=== PATIENT | female | born 1955 | race Caucasian/White ===

== ENCOUNTER → 2018-03-05 11:15 | Outpatient (CLI) | payer OTHER, SELFPAY | PROVIDERS: Family Provider Family Medicine; PCP Family Medicine; Referring Provider Family Medicine; Visit Provider Family Medicine | DX: Z00.00 Encounter for general adult medical examination without abnormal findings (principal) | CPT/HCPCS: 36415 ==

== ENCOUNTER → 2024-12-23 | Outpatient (CLI) | payer MEDICARE, SELFPAY ==
[2024-12-29 09:08] LABS: HPV APTIMA, High Risk Negative (Negative)
== END | disposition home or self-care (01) ==
PROVIDERS: PCP Family Medicine; Visit Provider Obstetrics & Gynecology
DX: Z12.4 Encounter for screening for malignant neoplasm of cervix (principal)
CPT/HCPCS: 87624; 88175; G0145

== ENCOUNTER → 2025-01-19 | Outpatient (CLI) | payer MEDICARE, SELFPAY ==
--- NOTE | 2025-01-19 12:29 | US_ITS ---
PROCEDURE: PELVIC W/ TRANSVAGINAL REASON FOR EXAM: POSTMENOPAUSAL BLEEDING TECHNIQUE: Procedure Code: [id number] Modality: US Procedure: PELVIC W/ TRANSVAGINAL COMPARISON: None FINDINGS: Measurements: Uterus: 6.7 cm x 4.2 cm x 3.1 cm with a volume of 45.4 mL Endometrial Thickness: 2 mm Right Ovary: 4 cm x 4.2 cm x with a volume of 25.3 mL. Left Ovary: Not visualized. TRANSABDOMINAL: Uterus: Heterogeneous echotexture of the uterus with focal calcification suggestive of fibroid change. Endometrium: Unremarkable Right ovary: Small right ovarian cysts are seen. The largest measures 2.4 cm 2.6 cm 2.1 cm. Left ovary: Not visualized. Other: No large pelvic mass identified. Transvaginal sonography was performed to better visualize the endometrium. TRANSVAGINAL: Uterus: Anteverted. Fibroid change. Endometrium: Normal echotexture. Right ovary: Small cysts. The largest cyst measures 2.4 cm 2.6 cm x 2.1 cm. Left ovary: Not visualized. Other adnexal findings: None. Cul-de-sac: No free intraperitoneal fluid identified. Tenderness: No tenderness US/Pelvic w/ Transvaginal IMPRESSION: Fibroid change in the uterus. Right ovarian cysts. The largest measures 2.4 cm 2.6 cm 2.1 cm. Reading Location: [id number]
== END | disposition home or self-care (01) ==
PROVIDERS: PCP Internal Medicine; Referring Provider Obstetrics & Gynecology; Visit Provider Obstetrics & Gynecology
DX: N93.9 Abnormal uterine and vaginal bleeding, unspecified (principal)
CPT/HCPCS: 76830; 76856

== ENCOUNTER 2025-01-29 08:25 | Day surgery (SDC) | payer MEDICARE, SELFPAY ==
[2025-01-22 14:09] LABS: Hematocrit 44.0 % (37-47); Hemoglobin 15.2 g/dL (12.0-15.0); Mean Corp Hgb Conc 34.5 g/dL (32-36); Mean Corpuscular Volume 87.6 fL (81-99); Mean Platelet Vol. 10.2 fl (6.2-12.0); Platelet Count 263 K/mm3 (150-450); RBC Distribution Width CV 13.2 % (11.6-14.6); RBC Distribution Width SD 42.5 fl (35.1-43.9); Red Blood Count 5.02 M/mm3 (4.2-5.4); White Blood Count 5.3 K/mm3 (4.4-11.0)
[2025-01-22 14:37] LABS: AST(SGOT) 25 U/L (<=31); Alanine Aminotransfer ALT/SGPT 14 U/L (<=34); Albumin, Serum 4.6 g/dL (3.4-4.8); Alkaline Phosphatase 71 U/L (35-104); Anion Gap 11 (5-15); BUN 13 mg/dL (4-19); BUN/Creat Ratio 18.6 RATIO (10-20); Calcium,Total 9.5 mg/dL (7.6-11.0); Carbon Dioxide 25.2 mmol/L (21.0-32.0); Chloride 102 mmol/L (98-108); Globulin 2.8 g/dL (2.2-4.2); Glucose 102 mg/dL (70-99); Potassium 4.2 mmol/L (3.3-5.1)
[2025-01-24 06:37] LABS: Carcinoembryonic Antigen 1.0 ng/mL (0.0-4.7)
[2025-01-29] VITALS (8 sets, daily range): BP systolic 88–154; BP diastolic 45–95; PULSE 53–78; RESP 16–18; TEMP 36.1–36.6; O2SAT 95–100; BMI 22.1
--- NOTE | 2025-01-29 08:17 | PCM.HP.BLA ---
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 Postmenopausal Bleeding - Reports postmenopausal bleeding episodes occurring daily, primarily noticed when wiping, with no clots observed. - Recent ultrasound on December 10 revealed calcifications in the uterine lining and a cluster of cysts in the right ovary. - No associated pelvic pain, but occasional pressure is noted, particularly when the prolapse is more pronounced. - No significant changes in weight, appetite, or energy levels. - No fevers, chest pain, shortness of breath, cough, or wheezing reported. - No abdominal pain, bloating, diarrhea, nausea, or vomiting. - No new skin lesions, dryness, or heat/cold intolerance. Pelvic Organ Prolapse - Initially sought medical attention for prolapse before the onset of bleeding. - Prolapse symptoms include a feeling of fullness and pressure, especially when the prolapse is more pronounced. - Symptoms are exacerbated by bowel movements and constipation. - Referred to a pelvic therapy program but has not yet initiated treatment. - No rectal bleeding reported. - Experiences urinary leakage, necessitating the use of a pad daily. Basal Cell Carcinoma - Recently diagnosed with basal cell carcinoma located above the tailbone. - Lesion was excised with clear margins achieved on re-excision. Hypertension - History of hypertension, currently not on medication. - Previously treated with hydrochlorothiazide (HCTZ) many years ago. - Monitored blood pressure at home last year due to elevated readings during a wellness visit. - Reports elevated blood pressure readings in clinical settings, attributing it to white coat syndrome. Family History - Mother and maternal grandmother had breast cancer; mother was diagnosed at 42 years old and 10 years later due to recurrence. - No family history of ovarian, colon, stomach, or renal cancer. - No genetic testing for breast cancer has been conducted in the family. Past Surgical History - Tonsillectomy. - Tubal ligation. History 5 Elective abortions Hx Para 5 Spontaneous abortions Hx # Term Pregnancies Ectopic pregnancies Hx # Pregnancies Multiple births # of living children 5 Past Pregnancies Del. Date Name GA/Weeks Outcome Route Bth Weight [facility] Mary Unknown Ch[place] Unknown [place] Unknown Francisca Unknown Juju ROS Neuro Neuro: Reports system reviewed and no additional complaints, except as documented ROS Narrative Constitutional: (-) fever, (-) fatigue, (-) weight change, (-) appetite change Cardiovascular: (-) chest pain, (-) palpitations Respiratory: (-) shortness of breath, (-) cough, (-) wheezing Gastrointestinal: (-) abdominal pain, (-) bloating, (-) diarrhea, (-) nausea, (-) vomiting, (-) rectal bleeding Genitourinary: (+) vaginal bleeding, (+) pelvic pressure, (+) urinary incontinence, (-) pelvic pain Skin: (-) skin dryness, (-) skin lesions Psychiatric: (+) depressed mood, (+) insomnia Endocrine: (-) heat intolerance, (-) cold intolerance Exam Const General: cooperative, healthy appearing, comfortable, no acute distress and well developed Orientation: alert [facility] Head: normal to inspection and normocephalic Ears: hearing grossly normal bilaterally and external ears normal Nose: external nose normal and nares normal Face and sinus: normal facial exam Neck Neck: normal visual inspection and no lymphadenopathy Thyroid: thyroid normal Chest Chest palpation & inspection: normal inspection of the chest Resp Effort & Inspection: normal respiratory effort Auscultation: clear to auscultation bilaterally Cardio Rate: regular rate Rhythm: regular rhythm Heart Sounds: S1 normal and S2 normal GI Inspection: normal to inspection and non-distended Palpation: soft and no hepatosplenomegaly General: bladder normal to palpation External Female Exam: normal external appearance and normal appearance of the urethra Urethra: normal appearance of the urethra, normal palpation and no discharge Speculum Exam - Vagina: normal appearance of the vagina and normal vaginal discharge Speculum Exam - Cervix: normal appearance of the cervix and nontender Bimanual Exam- Vagina & Uterus: normal bimanual exam, uterine size normal, bladder normal to palpation, uterine shape normal, No tender, uterine mobility normal, consistency normal, normal palpation and non-tender Bimanual Exam- Adnexa, other: normal adnexae, adnexae mobile, no masses, rectocele (III), cystocele and vaginal apex descent (III) Pelvic Support: cystocele severe (III), rectocele (III) and vaginal apex descent (III) Musc Other: gross motor intact no deficits, full bilateral strength Skin General: no rashes or lesions noted Neuro General: patient alert, patient awake, moves all extremities and no focal motor deficits Motor: muscle tone normal throughout Extrem General: normal to inspection and no pedal edema Psych Appearance: grossly normal Mental Status: mental status grossly normal Affect: normal affect Speech and Movement: speech and movement normal Coding Level of Care Code Off vis,new,level 5 Diagnoses Ovarian cyst N83.209 Postmenopausal bleeding N95.0 Incomplete uterovaginal prolapse N81.2 Assessment and Plan Assessment and Plan (1) Ovarian cyst: Status: Acute Comment: repeat US nl ca125 at previous electrolytic de scaler, if still present and significant recommend lap BSO CW (2) Postmenopausal bleeding: Status: Acute Comment: plan d and c hysteroscopy possible symphion. (3) Incomplete uterovaginal prolapse: Status: Acute Comment: plan LAVHBSO combo case with ruiz Orders: Orders Pelvic w/ Transvaginal Today N93.9 - Abnormal uterine and vaginal bleeding, unspecified PAP IG HPV APTIMA 16/18,45 Today Z12.4 - Encounter for screening for malignant neoplasm of cervix Plan # Postmenopausal bleeding (N95.0): - Ongoing postmenopausal bleeding evaluated with prior pelvic ultrasound showing a right ovarian cystic area and possible uterine polyps. - Discussed that less than 20% of postmenopausal bleeding is due to malignancy; patient educated on other possible benign etiologies such as polyps or endometrial overgrowth. - Planned hysteroscopy and dilation and curettage (D&C) with possible polypectomy under anesthesia; patient informed this is a same-day procedure with minimal incisions. - Ordered repeat pelvic ultrasound within one week prior to scheduled surgery (earliest available date the Saturday after ) to reassess ovarian cyst. - If interval imaging shows concerning changes or enlargement of the ovarian cyst, recommended laparoscopic bilateral salpingo-oophorectomy in addition to hysteroscopic evaluation. - Provided education regarding anesthesia, operative steps, and typical recovery expectations; no activity restrictions beyond day or two of rest post-procedure. # Female genital prolapse (N81.9): - Intermittent prolapse noted to fluctuate in severity; patient previously evaluated by urogynecology and offered pelvic floor therapy. - Patient deferred immediate treatment for prolapse until postmenopausal bleeding is resolved; advised to reconsider pessary placement or pelvic therapy as needed for symptomatic relief. # Stress incontinence (female) (male) (N39.3): - Mild urinary leakage reported; pads worn daily for protection. - Discussed that pelvic floor therapy can improve continence; see ?Female genital prolapse? above for therapy and management considerations. # Essential (primary) hypertension (I10): - Elevated reading in clinic today; patient denies current antihypertensive medications. - Instructed to monitor blood pressure at home; if persistently elevated, advised to contact primary care provider for medication evaluation.
--- NOTE | 2025-01-29 08:40 | PRE.ANES_ITS ---
ASA Classification* ASA Classification ASA Classification: 2 Assessment & Plan Anesthesia* Anesthesia Assessment Anesthesia Assessment: Discussed sedation and/or anesthesia options, risks, benefits, and alternatives with patient/parents/legal guardian/POA. Questions invited. The patient/parents/legal guardian/POA seems to understand and agrees to proceed with anesthesia plan. Reviewed the physical assessment, medical history, allergy history and patient home medications list prior to surgery/procedure/anesthetic and documented any changes. Performed airway and anesthesia risk assessments. Anesthesia Type Anesthesia Type: MAC Anesthesia Focused Assessment* Airway Assessment Mouth opens: >3 cm Mallampati Score: II Labs Anesthesia Preop lab: CBC WBC, (4.4-11.0) 5.3 K/mm3 01/22/25, 13:48 RBC, (4.2-5.4) 5.02 M/mm3 01/22/25, 13:48 Hgb, (12.0-15.0) 15.2 g/dL H 01/22/25, 13:48 Hct, (37-47) 44.0 % 01/22/25, 13:48 Plt Count, (150-450) 263 K/mm3 01/22/25, 13:48 CHEMISTRY Potassium, (3.3-5.1) 4.2 mmol/L 01/22/25, 13:48 Sodium, (133-145) 139 mmol/L 01/22/25, 13:48 BUN, (4-19) 13 mg/dL 01/22/25, 13:48 Creatinine, (0.70-1.20) 0.72 mg/dL 01/22/25, 13:48 Glucose, (70-99) 102 mg/dL H 01/22/25, 13:48 COAG Pre-Assessment Diagnosis/Proposed Procedure Planned Operative Procedure(s): Hysteroscopy,Dilation and Curettage, Possible Symphion Anesthesia History 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 When Was Last Pacemaker Check QUESTION #4 FULL TEXT: You/Your Family Experience fever (hyperthermia) with Anesthesia Last Oral Intake Last Oral intake: Last Oral Intake NPO since Meds taken in AM with sips of water? Meds patient instructed to take am of surgery PONV PONV - anode crew supervisor: PONV - anode crew supervisor Female Yes 01/22/25 08:27 HX of Motion Sickness No 01/22/25 08:27 HX of N/V After Surgery No 01/22/25 08:27 Non-Smoker Yes 01/22/25 08:27 Duration of Surgery greater No 01/22/25 08:27 than 60 minutes Number of Risk Factors 2 01/22/25 08:27 PONV Score Moderate Risk 01/22/25 08:27 Height & Weight Height & Weight: Anesthesia: Height & Weight Height 5 ft 2 in 12/23/24 11:33 Respiratory Assessment Respiratory Assessment - anode crew supervisor: Respiratory Tract Infection Hx - anode crew supervisor Hx Respiratory Tract Infection No 01/22/25 08:27 STOP Sleep Apnea STOP Sleep Apnea - anode crew supervisor: STOP Sleep Apnea - anode crew supervisor Hx Hypertension Yes: hx of 01/22/25 08:27 Hx Sleep Apnea No 01/22/25 08:27 CPAP BIPAP Do you snore loudly (louder No 01/22/25 08:27 than talking or can be heard Do you often feel tired/ No 01/22/25 08:27 fatigued/ sleepy during daytime? Has anyone observed you stop No 01/22/25 08:27 breathing during sleep? STOP Results Negative 01/22/25 08:27 QUESTION #5 FULL TEXT : Do you snore loudly (louder than talking or can be heard through closed doors)? Tobacco Use History Tobacco Use History - anode crew supervisor: Tobacco Use History - anode crew supervisor Tobacco Use Smoking Status Former smoker 01/22/25 15:42 Hx Tobacco Use No 01/22/25 08:27 Years Smoking Packs Smoked per Day Smoking Cessation Date was No - quit smoking greater 01/22/25 08:27 within the last 15 years than 15 years ago Hx Smoking Cessation Date Hx Smoking Cessation No 01/22/25 08:27 Counseling Hematologic Medial History Hematologic Hx - anode crew supervisor: Hematologic Medical Hx - developer advisor Hx of Blood Transfusion No 01/22/25 08:27 Hx of Transfusion in last 3 No 01/22/25 08:27 Months Date of Last Transfusion (if within last 3 months) Ever experience any problems No 01/22/25 08:27 with transfusion(s)? Specify any problems Hx of Preganancy in last 3 No 01/22/25 08:27 Months Nurse Filling Out Transfusion JZOLLINGE 01/22/25 08:27 & Questions: Date: 01/22/25 01/22/25 08:27 Time: 08:28 01/22/25 08:27 Patient unable to answer at this time (ie. confused, unrespo /Reproduction History /Reproductive History - anode crew supervisor: /Reproductive Hx- anode crew supervisor Hx Now No 01/22/25 08:27 Gestational Age (in weeks): EDC: Hx Hx Para Hx Section SAB No 01/22/25 08:27 Does the father of the baby or his family experience fever w Father of the baby Malignant Hypertension history comment Active Medications Active Medications: Current Medications Generic Name Dose Route Start Last Admin Trade Name Freq PRN Reason Stop Dose Admin Lactated Ringer's 1,000 mls @ 15 mls/hr 01/29/25 08:45 IV .Q48H NICHOLAS PFSH Medical History Skin cancer Bone fracture Wears glasses Cancer Arthritis Former smoker Heart palpitations Hypertension Home Medications ?Medication ?Instructions ?Recorded ?Last Taken ?Type cholecalciferol (vitamin D3) 50 50 mcg PO QDAY 5 Unknown History mcg (2,000 unit) capsule dbsedpbb-ikmjbrnb-chtnz acid 240 1 tab PO DAILY Unknown History mcg-vit K1 150 mcg-herb 357 tablet (Alive Women's 50 Plus Ultra Multivitamin) Allergy/AdvReac Type Severity Reaction Status Date / Time epinephrine Allergy Unknown Tachycardia Verified 01/22/25 08:20 Family History Mother Breast cancer, Onset Age: 42 Melanoma Grandmother Breast cancer, Onset Age: 80 Diabetes Father Renal cancer Diabetes Hypertension Neurological disease Grandfather Stomach cancer Brother Hypertension Son Seizures Other Cancer Mental disorder Skin cancer Surgical History Hx of tonsillectomy H/O tubal ligation Social History household members: spouse number of children: 5 current occupational status: employed and retired 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
--- OUTSIDE RECORDS SUMMARY | 2025-01-29 08:51 | XMS RPT_ITS | CCD ---
Author Organization [facility] Care Team Providers Care Skip Pit Worker Name Role Phone Matt Underwood MD Unavailable Matt Underwood MD Primary Care Provider MATT UNDERWOOD Primary Care Unavailable ALICIA TALBOT Attending Unavailable MAHAD FERNANDES Attending Unavailable MAHAD FERNANDES Referring Unavailable MATT UNDERWOOD Primary Care Unavailable MATT UNDERWOOD Attending Unavailable MATT UNDERWOOD Referring Unavailable Matt Underwood MD Primary Care Provider MATT UNDERWOOD Primary Care Unavailable SHANNAN ELLER Referring Unavailable Danii Velasquez Attending Unavailable Telma De Souza Primary Care Unavailable Telma De Souza Referring Unavailable Danii Velasquez Attending Unavailable Telma De Souza Primary Care Unavailable Danii Velasquez Attending Unavailable Telma De Souza Primary Care Unavailable Danii Velasquez Referring Unavailable Telma De Souza Primary Care Unavailable Danii Velasquez Attending Unavailable Dr. Telma De Souza MD Primary Care Physician Dr. Telma De Souza MD Referring Provider Dr. Danii Velasquez MD Attending Physician Allergies Allergy Classification Reported Allergen(s) Allergy Type Date of Onset Reaction(s) Facility (5 sources) EPINEPHrine; Translations: [EPINEPHRINE] Drug Allergy 4 Other (See Comments) [facility] (1 source) EPINEPHrine Drug Allergy 5 [facility] Repository (1 source) EPINEPHrine Drug Allergy 5 Tachycardia [facility] Medications Current Medications Medication Drug Class(es) Dates Sig (Normalized) Sig (Original) acetaminophen 325 mg / oxyCODONE hydrochloride 5 mg oral tablet (2 sources) Opioid Agonist Start: 2023 End: 04-19-2023 take 1 tablet by mouth every six hours for pain oxyCODONE-acetami nophen (Percocet) 5-325 MG tablet Indications: Other closed extra-articular fracture of distal end of right radius, initial encounter Take 1 tablet by mouth every 6 (six) hours if needed for severe pain for up to 7 days 28 tablet 0 2023 04/19/2023 Active cholecalciferol 0.05 mg oral capsule (3 sources) Vitamin D Start: 12-23-2024 take 1 capsule by mouth once daily take 1 capsule by mouth once lalit ly vitamin D (VITAMIN D3) 50 MCG (2000 UT) CAPS capsule Take 1 capsule by mouth daily Active take 1 capsule by mouth once lalit ly cholecalciferol (Vitamin D-3) 25 MCG (1000 UT) capsule Take 1,000 Units by mouth Daily Active estradiol 0.1 mg/ml vaginal cream (1 source) Estrogen Start: 12-11-2024 estradiol (ESTRACE VAGINAL) 0.1 MG/GM vaginal cream Indications: Atrophic vulvovaginitis Place 1 g vaginally three times a week 42 g 12/11/2024 Active ibuprofen 800 mg oral tablet (2 sources) Nonsteroidal Anti-inflammatory Drug Start: 04-11-2023 take 1 tablet by mouth every eight hours as needed ibuprofen 800 MG tablet Take 800 mg by mouth every 8 (eight) hours if needed 0 04/11/2023 Active Multiple Vitamin (MULTI-VITAMINS) TABS (1 source) take 1 tablet by mouth once daily Multiple Vitamin (MULTI-VITAMINS) TABS Take 1 tablet by mouth daily Active multivitamin (Theragran) tablet (1 source) take 1 tablet by mouth once daily multivitamin (Theragran) tablet Take 1 tablet by mouth Daily Active Mv-Mn-Folic Yrpb-N0-Pimf 357 (Alive Women's 50 Plus Ultra Mv) 240-150 mcg tablet (1 source) Start: 12-23-2024 Problems Active Problems Problem Classification Problem Date Documented Date Episodic/Chronic Cardiac dysrhythmias (1 source) Supraventricular tachycardia; Translations: [SVT (supraventricular tachycardia)] Onset: 05-17-2023 05-17-2023 Chronic Fracture of upper limb (3 sources) Closed fracture of distal end of radius; Translations: [Other extraarticular fracture of lower end of right radius, initial encounter for closed fracture] Onset: 04-11-2023 2023 Episodic Menopausal disorders (5 sources) Postmenopausal bleeding; Translations: [Postmenopausal bleeding] Onset: 12-15-2024 12-15-2024 Chronic Comment on above: plan d and c hystero scopy possible symphion. Osteoarthritis (1 source) Degenerative joint disease involving multiple joints; Translations: [Primary generalized (osteo)arthritis] Onset: 07-23-2024 07-23-2024 Chronic Other female genital disorders (2 sources) Abnormal uterine and vaginal bleeding, unspecified; Translations: [Abnormal uterine and vaginal bleeding, unspecified] Onset: 12-23-2024 Chronic Other injuries and conditions due to external causes (1 source) Injury of wrist Onset: 04-11-2023 Episodic Other non-traumatic joint disorders (2 sources) Pain of right wrist; Translations: [Pain in right wrist] 2023 Episodic Other non-traumatic joint disorders (1 source) Pain in wrist Onset: 04-11-2023 Episodic Other screening for suspected conditions (not mental disorders or infectious disease) (1 source) Encounter for screening for malignant neoplasm of cervix; Translations: [Encounter for screening for malignant neoplasm of cervix] Onset: 12-31-2024 Episodic Ovarian cyst (5 sources) Complex cyst of right ovary; Translations: [Other ovarian cyst, right side] Onset: 12-15-2024 12-15-2024 Episodic Comment on above: repeat US nl ca125 a t previous director institution, if still present and significant recommend lap BSO CW Prolapse of female genital organs (3 sources) Incomplete uterovaginal prolapse; Translations: [Incomplete uterovaginal prolapse] Onset: 12-23-2024 12-23-2024 Chronic Comment on above: plan LAVHBSO combo c [place] Past or Other Problems Problem Classification Problem Date Documented Da te Episodic/Chronic Essential hypertension (1 source) Benign essential hypertension; Translations: [Essential (primary) hypertension] Onset: 05-17-2023 Resolved: 05-20-2023 05-20-2023 Chronic Other circulatory disease (1 source) Elevated blood-pressure reading without diagnosis of hypertension; Translations: [Elevated blood-pressure reading, without diagnosis of hypertension] Onset: 05-20-2023 Resolved: 07-01-2023 07-01-2023 Episodic Viral infection (1 source) Recurrent herpes simplex labialis; Translations: [Herpesviral vesicular dermatitis] Onset: 07-01-2023 07-01-2023 Episodic Results Test Name Value Interpretation Reference Range Facility PAP IG HPV APTIMA 16/18,45on 12-29-2024 ADEQ Comment Normal . [facility] Comment on above: Order Comment: Speci men Comment: [id number] Specimen Comment: No. of containers..01 ThinPrep Vial Result Comment: Sati sfactory for evaluation. Endocervical and/or squamous metaplastic cells (endocervical component) are present. Performed By: #### L 7400.0280 #### [facility] [address] [place], [place], [id number] COMM . Normal . [facility] Comment on above: Order Comment: Speci men Comment: [id number] Specimen Comment: No. of containers..01 ThinPrep Vial Performed By: #### L 7400.0280 #### [facility] [address] [place], [place], [id number] COMMENT Comment Normal . [facility] Comment on above: Order Comment: Speci men Comment: [id number] Specimen Comment: No. of containers..01 ThinPrep Vial Result Comment: This liquid based ThinPrep(R) pap test was interpreted using the [employer](R) Genius(TM) Cervical Algorithm whole slide imaging system. Performed By: #### L 7400.0280 #### [facility] [address] [place], [place], [id number] DIAG Comment Normal . [facility] Comment on above: Order Comment: Speci men Comment: [id number] Specimen Comment: No. of containers..01 ThinPrep Vial Result Comment: NEGA TIVE FOR INTRAEPITHELIAL LESION OR MALIGNANCY. CELLULAR CHANGES ASSOCIATED WITH ATROPHY AND INFLAMMATION ARE PRESENT. Performed By: #### L 7400.0280 #### [facility] [address] [place], [place], [id number] HPV APTIMA, HR Negative Normal Negative [facility] Comment on above: Order Comment: Speci men Comment: [id number] Specimen Comment: No. of containers..01 ThinPrep Vial Result Comment: This nucleic acid amplification test detects fourteen high- risk HPV types (16,18,31,33,35,39,45,51,52,56,58,59,66,68) without differentiation. Performed By: #### L 7400.0280 #### [facility] [address] [place], [place], [id number] HPV Zakiya Rfx Comment Normal . [facility] Comment on above: Order Comment: Speci men Comment: [id number] Specimen Comment: No. of containers..01 ThinPrep Vial Result Comment: Crit eria not met, HPV Genotype not performed. Performed at: - [facility] [id number] Furniture Rental Consultant: Candy Lopez MD, Phone: [phone] Performed at: = - [facility] [id number] Furniture Rental Consultant: Candy Lopez MD, Phone: [phone] Performed By: #### L 7400.0280 #### [facility] [address] [place], [place], [id number] PAPSMR Comment Normal . [facility] Comment on above: Order Comment: Speci men Comment: [id number] Specimen Comment: No. of containers..01 ThinPrep Vial Result Comment: The Pap smear is a screening test designed to aid in the detection of premalignant and malignant conditions of the uterine cervix. It is not a diagnostic procedure and should not be used as the sole means of detecting cervical cancer. Both false-positive and false-negative reports do occur. Performed By: #### L 7400.0280 #### [facility] [address] [place], [address] PERFORM Comment Normal . [facility] Comment on above: Order Comment: Speci men Comment: [id number] Specimen Comment: No. of containers..01 ThinPrep Vial Result Comment: Antonino Rain, Railroad Conductor (ASCP) Performed By: #### L 7400.0280 #### [facility] [address] [place], [place], [id number] Cervical or vaginal specimen microscopic examination by liquid based cytology (reportOrdered By: Danii Velasquez on 12-23-2024 Cytology report Cyto stain.thin prep Doc (Cvx/Vag) Comment . [facility] Comment on above: Criteria not met, HP V Genotype not performed.Performed at: - [facility] [id number] Director: Candy Lopez MD, Phone: [phone] at: =[facility] [id number] Director: Candy Lopez MD, Phone: [phone] Cervical or vagninal specime n microscopic examination by cytology stain (reported asOrdered By: Danii Velasquez on 12-23-2024 Cytology report Cyto stain Doc (Cvx/Vag) Comment . [facility] Comment on above: The Pap smear is a s creening test designed to aid in thedetection of premalignant and malignant conditions of theuterine cervix. It is not a diagnostic procedure andshould not be used as the sole means of detecting cervicalcancer. Both false-positive and false-negative reports dooccur. Detection in cervical specim en of any of human papilloma virus (HPV) 16, 18, 31, 33,Ordered By: Danii Velasquez on 12-23-2024 HPV 16+18+31+33+35+39+45+5 1+52+56+58+59+66+68 DNA Probe+sig amp Ql (Cvx) Negative Negative [facility] Comment on above: This nucleic acid am plification test detects fourteen high- risk HPV types (16,18,31,33,35,39,45,51,52,56,58,59,66,68)without differentiation. Laboratory - CytologyOrdered By: Danii Velasquez on 12-23-2024 Railroad Conductor Cyto stain Nom (Cvx/Vag) [ID] Comment . [facility] Comment on above: Puneet Rain Cytolog ist (ASCP) Laboratory - Miscellaneous t estsOrdered By: Danii Velasquez on 12-23-2024 Service comment (Unsp spec) [Interp] . . [facility] No Panel InformationOrdered By: Danii Velasquez on 12-23-2024 Pap Smear Specimen Adequacy Comment . [facility] Comment on above: Satisfactory for helder luation. Endocervical and/or squamous metaplasticcells (endocervical component) are present. Credentials Specialist Office Visit Reporton 12-23-2024 Credentials Specialist Office Visit Report [facility] [address], [address] [place] [address] OFFICE VISIT Date of Service: 12/23/24 MR#: [id number] Acct: [id number] Name: SHAQUILLE COPE Rep #: [id number] : 1955 Provider: Dr. Danii herman MD Age/Sex: 69/F Location[facility] Status: Signed Intake Vital Signs 12/23/24 11:33 Height 5 ft 2 in Weight: 121 lb 6 oz BMI 22.1 BP 160/101 H Intake Visit Reasons: POST MENEPAUSE BLEEDING *PER Consolidation Accountant Required: No Is patient in pain?: No Allergies epinephrine Allergy (Unknown, Verified 12/23/24 11:34) Tachycardia Medications ???Medication ???Instructions ???Recorded ???Confirmed ???Type cholecalciferol (vitamin D3) 50 50 mcg PO QDAY 12/23/24 12/23/24 H istory mcg (2,000 unit) capsule lmfpdpqj-mmjqtije-juzm c acid 240 tab PO DAILY 12/23/24 12/23/24 His tory mcg-vit K1 150 mcg-herb 357 tablet (Alive Women's 50 Plus Ultra Multivitamin) Is last menstrual period known: No Post menopausal: Yes Patient : No : No PFSH Medical History (Updated 12/23/24 @ 13:[address] 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 Postmenopausal Bleeding - Reports postmenopausal bleeding episodes occurring daily, primarily noticed when wiping, with no clots observed. - Recent ultrasound on December 10 revealed calcifications in the uterine lining and a cluster of cysts in the right ovary. - No associated pelvic pain, but occasional pressure is noted, particularly when the prolapse is more pronounced. - No significant changes in weight, appetite, or energy levels. - No fevers, chest pain, shortness of breath, cough, or wheezing reported. - No abdominal pain, bloating, diarrhea, nausea, or vomiting. - No new skin lesions, dryness, or heat/cold intolerance. Pelvic Organ Prolapse - Initially sought medical attention for prolapse before the onset of bleeding. - Prolapse symptoms include a feeling of fullness and pressure, especially when the prolapse is more pronounced. - Symptoms are exacerbated by bowel movements and constipation. - Referred to a pelvic therapy program but has not yet initiated treatment. - No rectal bleeding reported. - Experiences urinary leakage, necessitating the use of a pad daily. Basal Cell Carcinoma - Recently diagnosed with basal cell carcinoma located above the tailbone. - Lesion was excised with clear margins achieved on re-excision. Hypertension - History of hypertension, currently not on medication. - Previously treated with hydrochlorothiazide (HCTZ) many years ago. - Monitored blood pressure at home last year due to elevated readings during a wellness visit. - Reports elevated blood pressure readings in clinical settings, attributing it to white coat syndrome. Family History - Mother and maternal grandmother had breast cancer; mother was diagnosed at 42 years old and 10 years later due to recurrence. - No family history of ovarian, colon, stomach, or renal cancer. - No genetic testing for breast cancer has been conducted in the family. Past Surgical History - Tonsillectomy. - Tubal ligation. History 5 Elective abortions Hx Para 5 Spontaneous abortions Hx # Term Pregnancies Ectopic pregnancies Hx # Pregnancies Multiple births # of living children 5 Past Pregnancies Del. Date Name GA/Weeks Outcome Route Bth Weight Gen Labor Lgth Anesthesia Del Locatn Provider FOB Unknown Mary Unknown Chacho Unknown [place] Unknown Francisca Unknown Juju ROS Neuro Neuro: Reports system reviewed and no additional complaints, except as documen (more content not included)... Normal [facility] ALL CA 125on 12-16-2024 MHPT CA 125 13 U/mL 0 - 38 U/mL [facility] Comment on above: The Renata ECLIA as say is used. Results obtained with different assay methods cannot be used interchangeably. Original Ordering Provider: SHANNAN ELLER [facility] CA 125on 12-16-2024 Cancer Ag 125 Qn 13 [arb'U]/mL 0 - 38 U/mL [facility] Comment on above: The Renata ECLIA as say is used. Results obtained with different assay methods cannot be used interchangeably. [facility] CA 125 13 U/mL Normal 0-38 [facility] Comment on above: Result Comment: The Renata ECLIA assay is used. Results obtained with different assay methods cannot be used interchangeably. Performed By: #### C A125 #### [facility] [place] [address] Furniture Rental Consultant: Bran Cartagena MD CBC (INCLUDES DIFF/PLT)on Basophils (Bld) [#/Vol] 0.051 10*3/uL Normal 0-200 [facility] Comment on above: Performed By: #### 7 600, 5071, 67263 #### [facility] of [address], [address] [place] [address] Bottle Packer: Robert Garces MD Basophils/100 WBC (Bld) 1.1 % Normal [facility] Comment on above: Performed By: #### 7 600, 6399, 04101 #### [facility] of [place] [address] Bottle Packer: Robert Garces MD Eosinophils (Bld) [#/Vol] 0.101 10*3/uL Normal 15-500 [facility] Comment on above: Performed By: #### 7 600, 6399, 23561 #### [facility] [place] [address] Bottle Packer: Robert Garces MD Eosinophils/100 WBC (Bld) 2.2 % Normal [facility] Comment on above: Performed By: #### 7 600, 6399, 41972 #### [facility] [place] [address] Bottle Packer: Robert Garces MD Erythrocyte distribution width (RBC) [Ratio] 14.1 % Normal 11.0-15.0 [facility] Comment on above: Performed By: #### 7 600, 6399, 98392 #### [facility] [place] [address] Bottle Packer: Robert Garces MD Hematocrit (Bld) [Volume fraction] 46.9 % High 35.0-45.0 [facility] Comment on above: Performed By: #### 7 600, 6399, 25519 #### [facility] [place] [address] Bottle Packer: Robert Garces MD Hemoglobin (Bld) [Mass/Vol] 14.9 g/dL Normal 11.7-15.5 [facility] Comment on above: Performed By: #### 7 600, 6399, 48257 #### [facility] [place] [address] Bottle Packer: Robert Garces MD Lymphocytes (Bld) [#/Vol] 2.213 10*3/uL Normal 850-3900 [facility] Comment on above: Performed By: #### 7 600, 63, 78238 #### [facility] [place] [address] Bottle Packer: Robert Garces MD Lymphocytes/100 WBC (Bld) 48.1 % Normal [facility] Comment on above: Performed By: #### 7 600, 63, 39864 #### [facility] [place] [address] Bottle Packer: Robert Garces MD MCH (RBC) [Entitic mass] 29.4 pg Normal 27.0-33.0 [facility] Comment on above: Performed By: #### 7 600, 63, 29913 #### [facility] [place] [address] Bottle Packer: Robert Garces MD MCHC (RBC) [Mass/Vol] 31.8 g/dL Low 32.0-36.[address] [facility] Comment on above: Result Comment: For adults, a slight decrease in the calculated MCHC value (in the range of 30 to 32 g/dL) is most likely not clinically significant; however, it should be interpreted with caution in correlation with other red cell parameters and the patient's clinical condition. Performed By: #### 7 600, 63, 40631 #### [facility] [place] [address] Bottle Packer: Robert Garces MD MCV (RBC) [Entitic vol] 92.7 fL Normal 80.0-100.0 [facility] Comment on above: Performed By: #### 7 600, 63, 89299 #### [facility] [place] [address] Bottle Packer: Robert Garces MD Monocytes (Bld) [#/Vol] 0.34 10*3/uL Normal 200-950 [facility] Comment on above: Performed By: #### 7 600, 63, 83952 #### [facility] of [address], [address] [place] [address] Bottle Packer: Robert Garces MD Monocytes/100 WBC (Bld) 7.4 % Normal [facility] Comment on above: Performed By: #### 7 600, 6399, 12158 #### [facility] [address], [address] [place] [address] Bottle Packer: Robert Garces MD Neutrophils (Bld) [#/Vol] 1.895 10*3/uL Normal 2605-8892 [facility] Comment on above: Performed By: #### 7 600, 6399, 16855 #### [facility] [address], [address] [place] [address] Bottle Packer: Robert Garces MD Neutrophils/100 WBC (Bld) 41.2 % Normal [facility] Comment on above: Performed By: #### 7 600, 6399, 21719 #### [facility] [address], [address] [place] [address] Bottle Packer: Robert Garces MD Platelet mean volume (Bld) [Entitic vol] 11.1 fL Normal 7.5-12.5 [facility] Comment on above: Performed By: #### 7 600, 6399, 06746 #### [facility] of [address], [address] [place] [address] Bottle Packer: Robert Garces MD Platelets (Bld) [#/Vol] 263 10*3/uL Normal 140-400 [facility] Comment on above: Performed By: #### 7 600, 6399, 61421 #### [facility] [address], [address] [place] [address] Bottle Packer: Robert Garces MD RBC (Bld) [#/Vol] 5.06 10*6/uL Normal 3.80-5.10 [facility] Comment on above: Performed By: #### 7 600, 6399, 16153 #### [facility] [address], [address] [place] [address] Bottle Packer: Robert Garces MD WBC (Bld) [#/Vol] 4.6 10*3/uL Normal 3.8-10.8 [facility] Comment on above: Performed By: #### 7 600, 6399, 83762 #### [facility] [place] [address] Bottle Packer: Robert Garces MD [facility] 07-14-2024 Albumin [Mass/Vol] 4.4 g/dL Normal 3.6-5.1 [facility] Comment on above: Performed By: #### 7 600, 6399, 02598 #### [facility] [place] [address] Bottle Packer: Robert Garces MD Albumin/Globulin [Mass ratio] 1.9 {ratio} Normal 1.0-2.5 [facility] Comment on above: Performed By: #### 7 600, 6399, 75066 #### [facility] [place] [address] Bottle Packer: Robert Garces MD ALP [Catalytic activity/Vol] 60 U/L Normal 37-153 [facility] Comment on above: Performed By: #### 7 600, 6399, 19774 #### [facility] [place] [address] Bottle Packer: Robert Garces MD ALT [Catalytic activity/Vol] 11 U/L Normal 6-29 [facility] Comment on above: Performed By: #### 7 600, 6399, 80567 #### [facility] [place] [address] Bottle Packer: Robert Garces MD AST [Catalytic activity/Vol] 19 U/L Normal 10-35 [facility] Comment on above: Performed By: #### 7 600, 6399, 38904 #### [facility] [place] [address] Bottle Packer: Robert Garces MD Bilirubin [Mass/Vol] 0.6 mg/dL Normal 0.2-1.2 [facility] Comment on above: Performed By: #### 7 600, 6399, 37803 #### [facility] [place] [address] Bottle Packer: Robert Garces MD BUN/CREATININE RATIO SEE NOTE: Normal 6-22 [facility] Comment on above: Result Comment: Not Reported: BUN and Creatinine are within reference range. Performed By: #### 7 600, 6399, 19618 #### [facility] [address], [address] [place] [address] Bottle Packer: Robert Garces MD Calcium [Mass/Vol] 9.5 mg/dL Normal 8.6-10.4 [facility] Comment on above: Performed By: #### 7 600, 6399, 40698 #### [facility] [place] [address] Bottle Packer: Robert Garces MD Chloride [Moles/Vol] 104 mmol/L Normal 98-110 [facility] Comment on above: Performed By: #### 7 600, 6399, 25969 #### [facility] [place] [address] Bottle Packer: Robert Garces MD CO2 [Moles/Vol] 26 mmol/L Normal 20-32 [facility] Comment on above: Performed By: #### 7 600, 6399, 36600 #### [facility] [place] [address] Bottle Packer: Robert Garces MD Creatinine [Mass/Vol] 0.59 mg/dL Normal 0.50-1.05 [facility] Comment on above: Performed By: #### 7 600, 6399, 96840 #### [facility] [place] [address] Bottle Packer: Robert Garces MD GFR/1.73 sq M.predicted among non-blacks MDRD (S/P/Bld) [Vol rate/Area] 99 mL/min/{1.73_m2} Normal > OR = 60 [facility] Comment on above: Performed By: #### 7 600, 6399, 96818 #### [facility] [place] [address] Bottle Packer: Robert Garces MD Globulin (S) [Mass/Vol] 2.3 g/dL Normal 1.9-3.7 [facility] Comment on above: Performed By: #### 7 600, 6399, 37267 #### [facility] of [place] [address] Bottle Packer: Robert Garces MD Glucose [Mass/Vol] 91 mg/dL Normal 65-99 [facility] Comment on above: Result Comment: Fasting reference interval Performed By: #### 7 600, 6399, 38859 #### [facility] [place] [address] Bottle Packer: Robert Garces MD Potassium [Moles/Vol] 4.4 mmol/L Normal 3.5-5.3 [facility] Comment on above: Performed By: #### 7 600, 6399, 45050 #### [facility] [place] [address] Bottle Packer: Robert Garces MD Protein [Mass/Vol] 6.7 g/dL Normal 6.1-8.1 [facility] Comment on above: Performed By: #### 7 600, 6399, 09694 #### [facility] [place] [address] Bottle Packer: Robert Garces MD Sodium [Moles/Vol] 142 mmol/L Normal 135-146 [facility] Comment on above: Performed By: #### 7 600, 6399, 30460 #### [facility] [place] [address] Bottle Packer: Robert Garces MD Urea nitrogen [Mass/Vol] 10 mg/dL Normal 7-25 [facility] Comment on above: Performed By: #### 7 600, 6399, 07872 #### [facility] of [address], [address] [place] [address] Bottle Packer: Robert Garces MD LIPID PANEL, [facility] 07-02 Cholesterol [Mass/Vol] 223 mg/dL High <200 [facility] Comment on above: Order Comment: FASTI NG:YES FASTING: YES Performed By: #### 7 600, 6399, 84859 #### [facility] [address], [address] [place] [address] Bottle Packer: Robert Garces MD Cholesterol in HDL [Mass/Vol] 96 mg/dL Normal > OR = 50 [facility] Comment on above: Order Comment: FASTI NG:YES FASTING: YES Performed By: #### 7 600, 6399, 04020 #### [facility] [address], [address] [place] [address] Bottle Packer: Robert Garces MD Cholesterol in LDL [Mass/Vol] 110 mg/dL High [facility] Comment on above: Order Comment: FASTI NG:YES FASTING: YES Result Comment: Refe rence range: <100 Desirable range <100 mg/dL for primary prevention; <70 mg/dL for patients with CHD or diabetic patients with > or = 2 CHD risk factors. LDL-C is now calculated using the Fam-Sergio calculation, which is a validated novel method providing better accuracy than the Friedewald equation in the estimation of LDL-C. Fam CERRATO et al. MARKOS. 2013;310(19): 8744-6813 (http://education.[employer]zora.[employer]/faq/KSI726) Performed By: #### 7 600, 6399, 49533 #### [facility] [address], [address] [place] [address] Bottle Packer: Robert Garces MD Cholesterol.total/Chol esterol in HDL [Mass ratio] 2.3 {ratio} Normal <5.0 [facility] Comment on above: Order Comment: FASTI NG:YES FASTING: YES Performed By: #### 7 600, 6399, 59428 #### [facility] [address], [address] [place] [address] Bottle Packer: Robert Garces MD NON HDL CHOLESTEROL 127 mg/dL (calc) Normal <130 [facility] Comment on above: Order Comment: FASTI NG:YES FASTING: YES Result Comment: For patients with diabetes plus 1 major ASCVD risk factor, treating to a non-HDL-C goal of <100 mg/dL (LDL-C of <70 mg/dL) is considered a therapeutic option. Performed By: #### 7 600, 6399, 07433 #### [facility] [address], [address] [place] [address] Bottle Packer: Robert Garces MD Triglyceride [Mass/Vol] 79 mg/dL Normal <150 [facility] Comment on above: Order Comment: FASTI NG:YES FASTING: YES Performed By: #### 7 600, 6399, 46245 #### [facility] [address], [address] [place] [address] Bottle Packer: Robert Garces MD BI MAMMOGRAM DIAGNOSTIC VIVIANE SYNTHESIS LEFTon 01-13-2024 BI MAMMOGRAM DIAGNOSTIC TOMOSYNTHESIS LEFT This is a summary report. The complete report is available in the patient's medical record. If you cannot access the medical record, please contact the sending organization for a detailed fax or copy. EXAMINATION: BI MAMMOGRAM DIAGNOSTIC TOMOSYNTHESIS LEFT CLINICAL HISTORY: 4 month follow up TECHNIQUE: Diagnostic digital mammogram study of the left breast was performed with 2D and 3D tomosynthesis imaging. Study was compared to the prior diagnostic mammogram study of the left breast dated 06/25/2023 as well as ultrasound study of the left breast dated 06/25/2023. FINDINGS: Study includes standard views as well as coned-down compression views and true lateral view of the left breast. Scattered areas of fibroglandular density are noted. There is no evidence of interval dominant spiculated mass, grouped microcalcifications or skin thickening which would be suggestive of malignancy. A few benign-appearing calcifications including vascular calcifications are noted. IMPRESSION: No specific evidence of malignancy seen in the left breast. BIRADS 2 - Benign DENSITY: There are scattered areas of fibroglandular density FOLLOW-UP: Routine Screening Mamm Board Certified Radiologists. Accredited by the ACR and FDA. MAMMOGRAPHY IS VERY IMPORTANT TO YOUR HEALTH. THE [employer] GUIDELINES RECOMMEND THAT WOMEN 40 YEARS OF AGE AND OLDER SHOULD HAVE A MAMMOGRAM EVERY YEAR. A REMINDER LETTER WILL BE SENT AT THE APPROPRIATE TIME. ELECTRONICALLY SIGNED BY: Herman Pereyra M.D. Normal Not Available No Panel Informationon 04-12 KELLI Brewster 2023 2:41 PM Orthopedic Injury Treatment - Fracture Date/Time: 2023 2:34 PM Performed by: KELLI Brewster Authorized by: KELLI Brewster Consent: Consent obtained: Verbal Consent given by: Patient Risks, benefits, and alternatives were discussed: yes Risks discussed: Pain, nerve damage and vascular damage Alternatives discussed: Observation, no treatment and referral [place] protocol: Procedure explained and questions answered to patient or proxy's satisfaction: yes Imaging studies available: yes Patient identity confirmed: Verbally with patient Injury: Injury location: Wrist Wrist injury location: R wrist Pre-procedure details: Distal neurologic exam: Normal Distal perfusion: distal pulses strong and brisk capillary refill Range of motion: reduced Anesthesia: Anesthesia method: Local infiltration (periosteal/ hematoma block) Local anesthetic: Bupivacaine 0.5% w/o epi (5ml) Procedure details: Manipulation performed: yes Reduction successful: yes X-ray confirmed reduction: yes Immobilization: Cast Cast type: Short arm Supplies used: Cotton padding and fiberglass Post-procedure details: Distal neurologic exam: Normal Distal perfusion: distal pulses strong and brisk capillary refill Range of motion: improved Procedure completion: Tolerated well, no immediate complications Fracture management: I provided definitive fracture management Comments: Discussed importance of Ice and elevation of casted extremity: Cast Care reviewed: [facility] XR WRIST RT MIN 3 VWSon XR WRIST RT MIN 3 VWS XR WRIST RT MIN 3 VWS XR WRIST RT MIN 3 VWS HISTORY: Wrist pain after fall on wrist. COMPARISON: None FINDINGS: 3 views of the right wrist obtained. Mildly displaced distal radial fracture with dorsal angulation. No visualized ulnar fracture. Significant chronic degenerative changes with osteophytic spurring of the first carpometacarpal joint. IMPRESSION: Mildly displaced distal radial fracture with dorsal angulation. No visualized ulnar fracture. Approved by Resident Titus Muñoz MD on 04/11/2023 3:51 PM I, Kishore Chappell MD have personally reviewed the image(s) and agree with and/or edited the report Finalized by Kishore Chappell MD on 04/11/2023 4:29 PM [facility] Vital Signs Date Time Vital Sign Value Performing Clinician Kirill lity 12-23-2024 11:33-0400 Body height 157.[address] Telma De Souza MD Work Phone: [facility] 12-23-2024 11:33-0400 Body mass index (BMI) [Ratio] 22.1 kg/m2 Dr. Telma De Souza MD Work Phone: [facility] 12-23-2024 11:33-0400 Body weight 55.[address] Telma De Souza MD Work Phone: [facility] 12-23-2024 11:33-0400 Diastolic blood pressure 101 mm[Hg] Dr. Telma De Souza MD Work Phone: [facility] 12-23-2024 11:33-0400 Systolic blood pressure 160 mm[Hg] Dr. Telma De Souza MD Work Phone: [facility] 2023 12:20-0500 Body height 157.5 cm Christophe PEREIRA Work Phone: [facility] 2023 12:20-0500 Body mass index (BMI) [Ratio] 21.4 kg/m2 Christophe PEREIRA Work Phone: [facility] 2023 12:20-0500 Body weight 53.07 kg Christophe PEREIRA Work Phone: [facility] Healthcare Encounters Encounter Date Encounter Type Care Provider Facility Start: 01-29-2025 ambulatory Danii Roy lity:[facility] Start: 01-19-2025 ambulatory Danii Roy lity:[facility] Start: 12-23-2024 End: 12-23-[address] Danii Velasquez MD -Laboratory [facility]imen Work Phone: Start: 12-23-2024 End: 12-23-[address] Danii Velasquez MD -[facility] Work Phone: Start: 12-23-2024 End: 12-23-2024 ambulatory Danii Velasquez Facility:[facility] Start: 12-23-2024 End: 12-23-2024 ambulatory Danii Velasquez Facility:[facility] Start: 12-15-2024 End: 12-15-2024 ambulatory MATT UNDERWOOD [facility] Start: 12-15-2024 End: 12-15-2024 Subsequent hospital visit by physician Nicole Laboratory Schedule [facility] Comment on above: PMB (postmenopausal bleeding); Complex cyst of right ovary Start: 12-15-2024 End: 12-16-2024 Clinisync Result Encounter Generic External Data Provider [facility] Unsolicited Start: 12-15-2024 End: 12-16-2024 Clinisync Result Encounter Generic External Data Provider [facility] Unsolicited Start: 07-23-2024 End: 07-23-2024 ambulatory MATT UNDERWOOD Not Available Start: 01-13-2024 End: 01-13-2024 ambulatory MATT UNDERWOOD Not Available Start: 2023 Bamboo flowsheet Christophe PEREIRA Work Phone: [facility] Start: 2023 Bamboo flowsheet Christophe PEREIRA Work Phone: [facility] Start: 2023 End: 2023 Office outpatient new 45 minutes Christophe PEREIRA Work Phone: [facility] Comment on above: Other closed extra-a rticular fracture of distal end of right radius, initial encounter (Primary Dx); Right wrist pain Start: 04-11-2023 End: 2023 Emergency department patient visit MAHAD FERNANDES [facility] Procedures Date Procedure Procedure Detail Performing Clinician Start: 12-23-2024 Liquid based cervica l cytology screening Dr. Telma De Souza MD Work Phone: Comment on above: NEGATIVE FOR INTRAEP ITHELIAL LESION OR MALIGNANCY.CELLULAR CHANGES ASSOCIATED WITH ATROPHY AND INFLAMMATION ARE PRESENT. This liquid based Th inPrep(R) pap test was interpretedusing the [employer](R) Genius(TM) Cervical Algorithm wholeslide imaging system. 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[employer] - [employer] Work Phone: Start: 01-13-2024 Mammography Generic Pr ovider Start: 2023 ORTHOPAEDIC INJURY T REATMENT - FRACTURE Christophe PEREIRA Work Phone: Plan of Treatment Date Care Activity Detail Author Start: 2032 Respiratory Syncytia l Virus (RSV) or age 60 yrs+ (1 - 1-dose 75+ series) Respiratory Syncytial Virus (RSV) or age 60 yrs+ (1 - 1-dose 75+ series) [facility] Start: 06-02-2026 Screening for malign ant neoplasm of colon [facility] Start: 01-12-2026 Screening for malign ant neoplasm of breast Breast cancer [facility] Start: 07-23-2025 Medicare Annual Wellness (AWV) Medicare Annual Wellness (AWV) [facility] Start: 07-23-2025 Pneumococcal Vaccine : 65+ Years (1 of 1 - PCV) Pneumococcal Vaccine: 65+ Years (1 of 1 - PCV) [facility] Comment on above: Postponed from 04/12 (Patient Refused) Start: 01-12-2025 Screening for malign ant neoplasm of breast Mammogram [facility] Start: 11-02-2024 COVID-19 Vaccine ( season) COVID-19 Vaccine ( season) [facility] Start: 11-02-2024 Influenza vaccination Influenza Vacc ine (#1) [facility] Start: 10-02-2024 Influenza vaccination Flu vaccine (# 1) [facility] Start: 03-04-2024 Annual Wellness Visi t (Medicare Advantage) Annual Wellness Visit (Medicare Advantage) [facility] Start: 04-19-2023 End: 04-19-2023 Patient encounter procedure 04/19/2023 10:00 AM EST Office Visit [facility] [address] [place] [address] Christophe Clark PA [address] [facility] [address] [place] [address] [facility] Start: 11-02-2022 Influenza vaccination Influenza Vacc ine (#1) [facility] Start: 2022 Pneumococcal Vaccine : 65+ Years (1 - PCV) Pneumococcal Vaccine: 65+ Years (1 - PCV) [facility] Start: 2012 Screening for osteoporosis DEXA (modify frequency per FRAX score) [facility] Start: 2007 Pneumococcal 50+ yea rs Vaccine (1 of 1 - PCV) Pneumococcal 50+ years Vaccine (1 of 1 - PCV) [facility] Start: 2007 Shingles vaccine (1 of 2) Shingles vaccine (1 of 2) [facility] Start: 2002 Screening for malign ant neoplasm of colon [facility] Start: 1997 Lipid panel Lipids [facility] Start: 1997 Screening for malign ant neoplasm of breast Mammogram [facility] Start: 1976 DTaP/Tdap/Td vaccine (1 - Tdap) DTaP/Tdap/Td vaccine (1 - Tdap) [facility] Start: 1975 Hepatitis C screening Hepatitis C sc reen [facility] Start: 1969 Depression Screen Depression Screen [facility] Start: 1957 Medicare Annual Wellness (AWV) Medicare Annual Wellness (AWV) [facility] Start: 1957 Screening for malign ant neoplasm of colon [facility] US Pelvis [facility] XR Wrist - right 2 Views XR wrist 1 or 2 views right Imaging Routine Right wrist pain 2023 12:34 PM EST [facility] Work Phone: Immunizations Immunization Date Immunization Notes Care Provider Fa cility 05-20-2023 tuberculin skin test ; purified protein derivative solution, intradermal Generic Provider [facility] Payers Date Payer Category Payer Self-pay 2023 Medicare ANTHEM MEDICARE ADVANTAGE ANTH MEDICARE ADVANTAGE [id number] 2023-Present [address] [place] [address] [id number] 2023 Medicare (Managed Care) AMANDA PEDRORE ADVANTAGE Member Subscriber Plan / Payer (Effective 2023-Present) Name: Shaquille Cope Relation to Subscriber: Self Name: Shaquille Cope Payer ID: Not on file Group ID: [id number] Type: Not on file Address: [address] [place] [id number] 2023 Medicare [id number] 2007 Unknown [id number] 1957 Unknown [id number] 1957 Unknown [id number] 1957 Unknown [id number] 1957 Unknown [id number] 1957 Unknown [id number] Unknown [id number] Unknown [id number] Unknown [id number] Unknown [id number] Social History Date Type Detail Facility [facility] Start: 1955 Sex Assigned At Not on file [facility] Start: 2023 End: 12-10-2024 Gender identity Not on file [facility] Start: 2023 Tobacco smoking stat us [facility] Never smoked tobacco [facility] Start: 2023 End: 11-09-2024 Tobacco use and exposure Smokeless tobacco non-user [facility] Start: 2023 End: 12-10-2024 History of Social function [facility] Start: 07-12-2022 Sex Female [facility] Start: 11-09-2024 End: 12-23-2024 Tobacco smoking status [facility]IS Ex-smoker [employer] End: 03-04-1982 History of tobacco use Current smoker [employer] End: 03-04-1982 History of tobacco use Cigarette Smoker [facility] Start: 12-10-2024 Alcoholic beverage intake Current drinker of alcohol (finding) [facility] Start: 11-09-2024 Alcohol Comment 7 drinks a week [facility] Start: 11-06-2024 Sex Female (finding) [facility] [employer] Start: 1955 Sex Assigned At Female [facility] Progress note 12-23-2024 Note Date & Type Note Facility 12-23-2024 Progress note [facility] Evaluation note 12-23-2024 Note Date & Type Note Facility 12-23-2024 Evaluation note Diagnosis Onset Date Resolution Incomplete uterovaginal prolapse acute December 23 11:30am Ovarian cyst acute December 11:30am Postmenopausal bleeding acute O ct2024 11:30am [facility] Work Phone: History of Present illness Narrative 2023 KELLI Brewster - 2023 11:00 AM EST Note Date & Type Note Facility 2023 History of Presen t illness Narrative Associated Order(s): Orthopedic Injury Treatment - Fracture Post-Procedure Diagnose(s): Other closed extra-articular fracture of distal end of right radius, initial encounter Images from the original note were not included. NAME: Shaquille Cope : 1955 HISTORY OF PRESENT ILLNESS: NEW PT Shaquille Cope is an 68 y.o. @ female. NEW PT WITH RT WRIST INJURY SUSTAINED 04/11/23 (1DAY AGO)- PT FELL PLAYING PICKLE BALL- WENT TO ER TX; XRAYS/SPLINT/MOTIN XRAY CR TODAY CHANGE 04/12/23 XRAY 04/11/23 DIFFICULTY SLEEPING- NOTES PAIN- +IBUPROFEN 800MG- SOME N/T- PT IS RT HAND DOMINANT PAST MEDICAL HISTORY: History reviewed. No pertinent past medical history. PAST SURGICAL HISTORY: History reviewed. No pertinent surgical history. SOCIAL HISTORY: Social History Occupational History Not on file Tobacco Use Smoking status: Never Smokeless tobacco: Never Substance and Sexual Activity Alcohol use: Not on file Drug use: Not on file Sexual activity: Not on file ALLERGIES: Allergies Allergen Reactions Epinephrine HOME MEDICATIONS: Current Outpatient Medications Medication Instructions ibuprofen 800 mg, Oral, Every 8 hours PRN oxyCODONE-acetaminophen (Percocet) 5-325 MG tablet 1 tablet, Oral, Every 6 hours PRN REVIEW OF SYSTEMS: Review of Systems Vitals: Body mass index is 21.4 kg/m . Tobacco Use: Low Risk (2023) Patient History Smoking Tobacco Use: Never Smokeless Tobacco Use: Never Passive Exposure: Not on file Alcohol Use: Not on file PHYSICAL EXAM: Hand/Wrist Musculoskeletal Exam Inspection Right Erythema: none Ecchymosis: mild Edema: mild Deformity: moderate Palpation Right Wrist tenderness to palpation comment: + tenderness distal radius, compartments soft Palpation additional comments: Denies pain to elbow. Range of Motion Range of motion additional comments: + PAIN WITH MOTION CONSISTENT WITH FRACTURE, NO EVIDENCE OF WRIST DROP, MAKES FULL FIST Strength Right Wrist Right wrist strength is normal. Strength additional comments: MOTORS HAND AND WRIST WITHIN LIMITS OF FRACTURE Neurovascular Right Right neurovascular exam is normal. Radial pulse: normal and 2+ Capillary refill: <3 sec and brisk Neurovascular additional comments: NO FOCAL DEFICITS, compartments soft. Special Tests Right DRUJ instability: negative (DIFFICULTY TO STRESS WITH ACUTE FRACTURE) General Constitutional: appears stated age Labored breathing: no Neurological: alert and oriented x3 Skin: intact Lymphadenopathy: none IMAGING: No image results found. Orthopedic Injury Treatment - Fracture Date/Time: 2023 2:34 PM Performed by: KELLI Brewster Authorized by: KELLI Brewster Consent: Consent obtained: Verbal Consent given by: Patient Risks, benefits, and alternatives were discussed: yes Risks discussed: Pain, nerve damage and vascular damage Alternatives discussed: Observation, no treatment and referral [place] protocol: Procedure explained and questions answered to patient or proxy's satisfaction: yes Imaging studies available: yes Patient identity confirmed: Verbally with patient Injury: Injury location: Wrist Wrist injury location: R wrist Pre-procedure details: Distal neurologic exam: Normal Distal perfusion: distal pulses strong and brisk capillary refill Range of motion: reduced Anesthesia: Anesthesia method: Local infiltration (periosteal/ hematoma block) Local anesthetic: Bupivacaine 0.5% w/o epi (5ml) Procedure details: Manipulation performed: yes Reduction successful: yes X-ray confirmed reduction: yes Immobilization: Cast Cast type: Short arm Supplies used: Cotton padding and fiberglass Post-procedure details: Distal neurologic exam: Normal Distal perfusion: distal pulses strong and brisk capillary refill Range of motion: improved Procedure completion: Tolerated well, no immediate complications Fracture management: I provided definitive fracture management Comments: Discussed importance of Ice and elevation of casted extremity: Cast Care reviewed: Orders Placed This Encounter Procedures Orthopedic Injury Treatment - Fracture This order was created via procedure documentation XR wrist 1 or 2 views right Order Specific Question: Reason for exam: Answer: PAIN ASSESSMENT: ICD-10-CM 1. Other closed extra-articular fracture of distal end of right radius, initial encounter S52.551A oxyCODONE-acetaminophen (Percocet) 5-325 MG tablet Orthopedic Injury Treatment - Fracture 2. Right wrist pain M25.531 XR wrist 1 or 2 views right PLAN: Reviewed x-rays from hospital at bedside with patient and her spouse. Surgical and nonsurgical treatment options discussed including open reduction internal fixation versus closed reduction at the bedside with block. Patient agreeable to attempt at closed reduction. Patient tolerated the procedure well reported minimal pain up to only 3/10 with local anesthesia. We discussed importance of ice and elevation. Postreduction films discussed at the bedside with significantly improved alignment. We did discuss that to make the fracture looked perfect she would need possible place and screws.. pt verbalized she is ok with success of post reduction and agreeable to ICE and Elevation, repeat xray in 1 wk to assess stability.. pt thankful . Recommend no lifitng loading or pushing with wrist. Questions answered in laymen terms at the bedside. The diagnosis, home exercise plan and any ongoing restrictions/ recommendations reviewed. If unable to be reached in office, I recommend evaluation at nearest Emergency Room if any symptoms worsened or new symptoms develop for requiring urgent evaluation. KELLI Brewster documented in this encounter [facility] Healthcare Instructions 2023 Patient Instructions Note Date & Type Note Facility 2023 Instructions KELLI Brewster - 2023 11:00 AM EST Caring for your cast Why do I have a cast? You have a cast to treat your broken bone. (A broken bone is also called a fracture.) The cast will reduce your pain and protect your bone as it heals. Casts are made of hard material that goes over a soft liner and padding. You will keep the cast on until a doctor removes it. Why is it important to take care of a cast? It's important to take care of a cast so that the skin underneath doesn't get hurt or infected. Can I get my cast wet? NO. If you need to keep your cast dry when you bathe, you can: ? Cover it with 2 plastic bags, and tape each bag (separately) to your skin with duct tape ? Keep your cast outside of the tub or shower when you wash your body. ? For young children, use a rubber band at the top of each plastic bag instead of tape. For them, removing the tape from the skin can hurt too much. ?Keep your cast clean, and avoid getting dirt or sand inside it. ?Do not put anything inside your cast. ?Do not put powder or lotion on the skin near your cast. ?Do not pull the lining out from inside the cast. ?Cover your cast when you eat, so it doesn't get dirty. What if I have pain under my cast during the first few days? If you have pain during the first few days, you can: ?Put ice on the cast - Use a cold gel pack, bag of ice, or bag of frozen vegetables every 1 to 2 hours, for 15-20 minutes each time. Do not put the ice (or other cold object) directly on your skin. ?Keep your cast raised (for example, on pillows) to help reduce swelling - To reduce swelling and pain, your cast needs to be raised above the level of your heart. ?Take medicine to relieve your pain - As directed on the bottle, you may use iexo-zoz-tfkyxkd medicines, such as acetaminophen (sample brand name: Tylenol) or ibuprofen (sample brand names: Advil, Motrin). What if the skin under my cast itches? If your skin itches, you can use a hair preparer on the cool setting to blow air inside the cast. Do not put anything in your cast to scratch the skin. Should I see a doctor or nurse? See a medical provider right away if: ?You have severe pain or pain that is getting worse. ?You have sores or cuts on the skin under the cast. ?Your cast smells bad, feels too tight, or cracks. ?You are unable to move your fingers or toes. ?Your fingers or toes are blue, enrique, or cold. ?Your cast is not waterproof and becomes soaking wet. If the office is unavailable, recommend you go to nearest Emergency Room and not wait for scheduled appt. documented in this encounter [facility] Healthcare Evaluation note Note Date & Type Note Facility Evaluation note Diagnosis Other closed extra-articular fracture of distal end of right radius, initial encounter- Primary Right wrist pain Pain in joint, forearm documented in this encounter [facility] Healthcare Evaluation note Note Date & Type Note Facility Evaluation note Diagnosis PMB (postmenopausal bleeding) Postmenopausal bleeding Complex cyst of right ovary documented in this encounter [facility] Progress note Note Date & Type Note Facility Progress note Note Date/Time December 23, 2024 1:32pm [facility] [address], [address] [place] [address] OFFICE VISIT Date of Service: 12/23/24 MR#: [id number] Acct: [id number] Name: SHAQUILLE COPE Rep #: [id number] : 1955 Provider: Dr. Danny Velasquez MD Age/Sex: 69/F [facility] Status: Signed Intake Vital Signs 12/23/24 11:33 Height 5 ft 2 in Weight: 121 lb 6 oz BMI 22.1 BP 160/101 H Intake Visit Reasons: POST MENEPAUSE BLEEDING *PER Consolidation Accountant Required: No Is patient in pain?: No Allergies epinephrine Allergy (Unknown, Verified 12/23/24 11:34) Tachycardia Medications ?Medication ?Instructions ?Recorded ?Confirmed ?Type cholecalciferol (vitamin D3) 50 50 mcg PO QDAY 5 12/23/24 History mcg (2,000 unit) capsule ndqapqqb-rasyezfm-myzoe acid 240 tab PO DAILY 12/23/24 12/23/24 History mcg-vit K1 150 mcg-herb 357 tablet (Alive Women's 50 Plus Ultra Multivitamin) Is last menstrual period known: No Post menopausal: Yes Patient : No : No PFSH Medical History (Updated 12/23/24 @ 13:[address] 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 Postmenopausal Bleeding - Reports postmenopausal bleeding episodes occurring daily, primarily noticed when wiping, with no clots observed. - Recent ultrasound on December 10 revealed calcifications in the uterine liningand a cluster of cysts in the right ovary. - No associated pelvic pain, but occasional pressure is noted, particularly whenthe prolapse is more pronounced. - No significant changes in weight, appetite, or energy levels. - No fevers, chest pain, shortness of breath, cough, or wheezing reported. - No abdominal pain, bloating, diarrhea, nausea, or vomiting. - No new skin lesions, dryness, or heat/cold intolerance. Pelvic Organ Prolapse - Initially sought medical attention for prolapse before the onset of bleeding. - Prolapse symptoms include a feeling of fullness and pressure, especially when the prolapse is more pronounced. - Symptoms are exacerbated by bowel movements and constipation. - Referred to a pelvic therapy program but has not yet initiated treatment. - No rectal bleeding reported. - Experiences urinary leakage, necessitating the use of a pad daily. Basal Cell Carcinoma - Recently diagnosed with basal cell carcinoma located above the tailbone. - Lesion was excised with clear margins achieved on re-excision. Hypertension - History of hypertension, currently not on medication. - Previously treated with hydrochlorothiazide (HCTZ) many years ago. - Monitored blood pressure at home last year due to elevated readings during a wellness visit. - Reports elevated blood pressure readings in clinical settings, attributing it to white coat syndrome. Family History - Mother and maternal grandmother had breast cancer; mother was diagnosed at 42 years old and 10 years later due to recurrence. - No family history of ovarian, colon, stomach, or renal cancer. - No genetic testing for breast cancer has been conducted in the family. Past Surgical History - Tonsillectomy. - Tubal ligation. History 5 Elective abortions Hx Para 5 Spontaneous abortions Hx # Term Pregnancies Ectopic pregnancies Hx # Pregnancies Multiple births # of living children 5 Past Pregnancies Del. Date Name GA/Weeks Outcome Route Bth Weight Gen Labor Lgth Anesthesia Del [facility] Provider FOB Unknown Mary Unknown Chacho Unknown [place]og[place] Unknown Francisca Unknown Juju ROS Neuro Neuro: Reports system reviewed and no additional complaints, except as documented ROS Narrative Constitutional: (-) fever, (-) fatigue, (-) weight change, (-) appetite change Cardiovascular: (-) chest pain, (-) palpitations Respiratory: (-) shortness of breath, (-) cough, (-) wheezing Gastrointestinal: (-) abdominal pain, (-) bloating, (-) diarrhea, (-) nausea, (-) vomiting, (-) rectal bleeding Genitourinary: (+) vaginal bleeding, (+) pelvic pressure, (+) urinary incontinence, (-) pelvic pain Skin: (-) skin dryness, (-) skin lesions Psychiatric: (+) depressed mood, (+) insomnia Endocrine: (-) heat intolerance, (-) cold intolerance Exam Const General: cooperative, healthy appearing, comfortable, no acute distress and welldeveloped Orientation: alert [facility] Head: normal to inspection and normocephalic Ears: hearing grossly normal bilaterally and external ears normal Nose: external nose normal and nares normal Face and sinus: normal facial exam Neck Neck: normal visual inspection and no lymphadenopathy Thyroid: thyroid normal Chest Chest palpation & inspection: normal inspection of the chest Resp Effort & Inspection: normal respiratory effort Auscultation: clear to auscultation bilaterally Cardio Rate: regular rate Rhythm: regular rhythm Heart Sounds: S1 normal and S2 normal GI Inspection: normal to inspection and non-distended Palpation: soft and no hepatosplenomegaly General: bladder normal to palpation External Female Exam: normal external appearance and normal appearance of the urethra Urethra: normal appearance of the urethra, normal palpation and no discharge Speculum Exam - Vagina: normal appearance of the vagina and normal vaginal discharge Speculum Exam - Cervix: normal appearance of the cervix and nontender Bimanual Exam- Vagina & Uterus: normal bimanual exam, uterine size normal, bladder normal to palpation, uterine shape normal, No tender, uterine mobility normal, consistency normal, normal palpation and non-tender Bimanual Exam- Adnexa, other: normal adnexae, adnexae mobile, no masses, rectocele (III), cystocele and vaginal apex descent (III) Pelvic Support: cystocele severe (III), rectocele (III) and vaginal apex descent(III) Musc Other: gross motor intact no deficits, full bilateral strength Skin General: no rashes or lesions noted Neuro General: patient alert, patient awake, moves all extremities and no focal motor deficits Motor: muscle tone normal throughout Extrem General: normal to inspection and no pedal edema Psych Appearance: grossly normal Mental Status: mental status grossly normal Affect: normal affect Speech and Movement: speech and movement normal Coding Level of Care Code Off vis,new,level 5 Diagnoses Ovarian cyst N83.209 Postmenopausal bleeding N95.0 Incomplete uterovaginal prolapse N81.2 Assessment and Plan Assessment and Plan (1) Ovarian cyst: Status: Acute Comment: repeat US nl ca125 at previous director institution, if still present and significant recommend lap BSO CW (2) Postmenopausal bleeding: Status: Acute Comment: plan d and c hysteroscopy possible symphion. (3) Incomplete uterovaginal prolapse: Status: Acute Comment: plan LAVHBSO combo case with rafitaradha Orders: Orders Pelvic w/ Transvaginal Today N93.9 - Abnormal uterine and vaginal bleeding, unspecified PAP IG HPV APTIMA 16/18,45 Today Z12.4 - Encounter for screening for malignant neoplasm of cervix Plan # Postmenopausal bleeding (N95.0): - Ongoing postmenopausal bleeding evaluated with prior pelvic ultrasound showinga right ovarian cystic area and possible uterine polyps. - Discussed that less than 20% of postmenopausal bleeding is due to malignancy; patient educated on other possible benign etiologies such as polyps or endometrial overgrowth. - Planned hysteroscopy and dilation and curettage (D&C) with possible polypectomy under anesthesia; patient informed this is a same-day procedure withminimal incisions. - Ordered repeat pelvic ultrasound within one week prior to scheduled surgery (earliest available date the Saturday after ) to reassess ovarian cyst. - If interval imaging shows concerning changes or enlargement of the ovarian cyst, recommended laparoscopic bilateral salpingo-oophorectomy in addition to hysteroscopic evaluation. - Provided education regarding anesthesia, operative steps, and typical recoveryexpectations; no activity restrictions beyond day or two of rest post-procedure. # Female genital prolapse (N81.9): - Intermittent prolapse noted to fluctuate in severity; patient previously evaluated by urogynecology and offered pelvic floor therapy. - Patient deferred immediate treatment for prolapse until postmenopausal bleeding is resolved; advised to reconsider pessary placement or pelvic therapy as needed for symptomatic relief. # Stress incontinence (female) (male) (N39.3): - Mild urinary leakage reported; pads worn daily for protection. - Discussed that pelvic floor therapy can improve continence; see ?Female genital prolapse? above for therapy and management considerations. # Essential (primary) hypertension (I10): - Elevated reading in clinic today; patient denies current antihypertensive medications. - Instructed to monitor blood pressure at home; if persistently elevated, advised to contact primary care provider for medication evaluation. 12/23/24 1316 <Electronically signed by Danii marques MD> Date _ Danii Velasquez MD [facility] Signature: Date (if applicable) CC: ~ [facility] Work Phone: Reason for referral (narrative) Note Date & Type Note Facility Reason for referral (narrative) No reason for referral information available [facility] Work Phone: Summary Purpose Family History Relationship Condition Age at Onset Recorded Date/T lenka mother Malignant neoplasm of breast 42 Malignant melanoma Unknown grandmother Malignant neoplasm of breast 80 Diabetes mellitus Unknown father Malignant neoplasm of kidney Unknown Hypertension Unknown Neurological disorder Unknown grandfather Malignant neoplasm of stomach Unknown brother Hypertension Unknown son Seizure Unknown Advance Directives No Advanced Directives Records FoundNo Advanced Directives Records FoundNo Advanced Directives Records FoundNo Advanced Directives Records FoundNo Advanced Directives Records Found Chief Complaint and Reason for Visit Chief Complaint Admit Date POST MENEPAUSE BLEEDING *PER SM December 23, 2024 11:30am Reason for Visit Admit Date Incomplete uterovaginal prolapse December 23, 2024 11:30am Ovarian cyst December 23, 2024 1 1:30am Postmenopausal bleeding December 23 11:30am Additional Source Comments Care Teams (unrecognized sec tion and content) Skip Pit Worker Relationship Specialty Start Date End Date Matt Underwood MD [address] [facility] [address] [place] [address] PCP - Amanda ADAMS 04/04/22 Matt Underwood MD [address] [facility] [address] [place] [address] PCP - General Internal Medicine 04/12/23 Skip Pit Worker Relationship Specialty Start Date End Date Matt Underwood MD [address] [facility] [address] [place] [address] PCP - Amanda ADAMS 04/04/22 Matt Underwood MD [address] [facility] [address] [place] [address] PCP - General Internal Medicine 04/12/23 Skip Pit Worker Relationship Specialty Start Date End Date Matt Underwood MD [address] [facility] [address] [place] [address] PCP - Amanda ADAMS 04/04/22 Matt Underwood MD [address] [facility] [address] [place] [address] PCP - General Internal Medicine 04/12/23 Skip Pit Worker Relationship Specialty Start Date End Date Matt Underwood MD [address] [facility] [address] [place] [address] PCP - General Internal Medicine 12/07/24 Team Status: Active Member Role/Relationship Status Dates Dr. Telma De Souza MD Primary care physician Active Team Status: Inactive Member Role/Relationship Status Dates Dr. Telma De Souza MD Primary care physician Active Start: December 23, 2024 End: December 23, 2024 Dr. Telma De Souza MD Referring Provider Active S tart: December 23, 2024 End: December 23, 2024 Dr. Danii Velasquez MD Attending physician Active Start: December 23, 2024 End: December 23, 2024 Team Status: Inactive Member Role/Relationship Status Dates Dr. Telma De Souza MD Primary care physician Active Start: December 23, 2024 End: December 23, 2024 Dr. Danii Velasquez MD Attending physician Active Start: December 23, 2024 End: December 23, 2024 Reason for Visit (unrecogniz ed section and content) Reason Comments Pain INFORMATION SOURCE (unrecogn ized section and content) DATE CREATED AUTHOR 04/15/2023 [facility] DATE CREATED AUTHOR AUTHOR'S ORGANIZ ATION 07/15/2024 [facility] DATE CREATED AUTHOR AUTHOR'S ORGANIZ ATION 07/29/2024 [facility] EPIC DATE CREATED AUTHOR AUTHOR'S ORGANIZ ATION 12/17/2024 [facility] DATE CREATED AUTHOR AUTHOR'S ORGANIZ ATION 01/14/2025 [facility] Goals (unrecognized section and content) Goals may be documented in a n alternate section FOR RECORDS PERTAINING TO PATIENTS WHO ARE OR HAVE BEEN ENROLLED IN A CHEMICAL DEPENDENCY/SUBSTANCEABUSE PROGRAM, SOME INFORMATION MAY BE OMITTED. This clinical summary was aggregated from multiple sources. Caution should be exercised in using it in the provision of clinical care. This summary normalizes information from multiple sources, and as a consequence, information in this document may materially change the coding, format and clinical context of patient data. In addition, data may be omitted in some cases. CLINICAL DECISIONS SHOULD BE BASED ON THE PRIMARY CLINICAL RECORDS. [facility] [employer] [facility]. provides no warranty or guarantee of the accuracy or completeness of information in this document.
[2025-01-29] MEDS: Lactated Ringers 1,000 ML 15 ML IV (09:10)
--- NOTE | 2025-01-29 10:05 | EMB_PTH ---
PATIENT: SHAQUILLE COPE LOC: [facility] U#:[id number] AGE/SX: 69/F ROOM: RE01/29/[address]: Dr. Danii Velasquez MD : 1955 BED: DIS: 01/29/2025 SPEC #: [id number] RECD: 01/29/25 13:24 STATUS: EYAL REQ #: [id number] CHRISTINE: 01/29/25 10:[address]: Danii Velasquez DEPT: SURGICAL PATHOLOGY RECD BY: Anant Jean ENTERED: 02/01/25 08:33 SP TYPE: ENDOM BX/C AUREA DR: Dr. Matt Underwood MD Tissues: A - Endometrium, NOS Procedures: Special Stain Group I Surgery Specimen Level IV GMS Stain (control) HEADER OPERATION: Hysteroscopy, dilation and curettage PRE-OP DIAGNOSIS: Post menopausal bleeding TISSUE SUBMITTED: A- Endometrial curettings MICROSCOPIC DIAGNOSIS A. Endometrium, curettage: - Squamous mucosa consistent with cervical origin, with mild acute inflammation. - PASD stain is negative for fungal organisms. - No endometrial tissue is seen. MICROSCOPIC DESCRIPTION Slides are reviewed. All matched controls reacted appropriately. These tests were developed and their performance characteristics determined by [facility]. They may not have been cleared or approved by the U.S. Food and Drug Administration. The FDA has determined that such clearance or approval is not necessary. The above immunohistochemical markers and/or special?stains have been reviewed by the Pathologist. GROSS DESCRIPTION A. Received in formalin labeled with the patient's name and date of . Designated as endometrial curettings is a 0.8 x 0.3 x <0.1 cm aggregate of mucoid material and flecks of possible soft tissue. Entirely submitted in 1 cassette. Entirety of the specimen may not survive processing. OK 01/29/2025 CPT:82117,36302
[2025-01-29] MEDS: Midazolam 2 MG/2 ML Syringe IV (10:17)
[2025-01-29] MEDS: Lactated Ringers 1,000 ML 1000 ML IV (10:17)
[2025-01-29] MEDS: Lidocaine 1% (5 ml sdv) 5 ML Vial 6 ML IV (10:22)
--- NOTE | 2025-01-29 10:45 | PCM.OPRPT ---
Multi Select Codes Urinary/Genital Urinary/Genital CPT Codes: 32851 Hysteroscopy, Polypectomy, Symphion Operative Report (Standard) Operative Information Date of Procedure: 01/29/25 Pre-Operative Diagnosis: postmenopausal bleeding Post-Operative Diagnosis: same atrophic lining arcuate shaped uterus Surgery/Procedure Performed: d and c hysteroscopy still operator: No Type of Anesthesia: Local MAC RN Documented Start/Stop Times: Operation Date: 01/29/25 10:05 Case Time Into Pre-Op 01/29/25 08:37 Out of Pre-Op 01/29/25 10:13 Anesthesia Start 01/29/25 10:17 Into Room 01/29/25 10:17 Procedure Start 01/29/25 10:38 Procedure Start Time: 10:38 Procedure Stop Time: 10:45 Select all DRAINS/GRAFTS/IMPLANTS that apply: None Estimated Blood Loss: 10 Specimen collected: Yes Description [place] specimen(s[place] [facility] [place] of surgery: Patient was prepped and draped in a normal sterile fashion under MAC anesthesia. A weighted speculum was placed in the vagina and the anterior lip of the cervix was grasped with a single-tooth tenaculum. A paracervical block was placed with 1% lidocaine. Cervix was progressively dilated to allow passage of a 7 mm hysteroscope. The lining was fully visualized and noted to have an extremely thin atrophic lining with an arcuate appearance to the uterus with a uterine septum present. Curettage was performed and scant amount of tissue removed, sent to pathology. All instruments were removed from the vagina and excellent hemostasis was noted. Patient was awoken and taken to recovery in stable condition. Surgical Findings: thin atrophic lining arcuate uterus Complications Complications: No
[2025-01-29] MEDS: Lidocaine 1% (30 ml sdv) 30 ML Vial (10:46)
--- NOTE | 2025-01-29 10:47 | PCM.DC ---
Discharge Instructions DC O2, CPAP, BIPAP needs Home O2 Discharge instructions: No Dressing / Incision Discharge Activity: Return to Normal Activity, May Shower and May Take a Tub Bath (after 1 week) May resume sexual activity in: 1-2 weeks Weight Bearing Status: Weight bearing as tolerated Lifting Restrictions: none Dressing / Incision Call your doctor if you observe: Fever of 101 or Higher, Using more than 1 pad per hour, Shortness of breath and Uncontrolled pain Follow Up Care Please Follow Up With: Danii Velasquez MD When: Call [phone] to schedule appointment. Test Results: Test results from this visit will be discussed in further detail at your follow-up appointment, if applicable. Discharge Plan Admission Attending Provider: Danii Velasquez Primary Care Provider: Matt Underwood Instructions Print Language: Fijian Discharge Orders/Prescriptions Prescriptions: No Action cholecalciferol (vitamin D3) 50 mcg (2,000 unit) capsule 50 mcg PO QDAY Alive Women's 50 Plus Ultra MV 240-150 mcg tablet 1 tab PO DAILY Referrals / Follow Up: Matt Underwood MD [Primary Care Provider, Internal Medicine] Disposition Disposition (needs filled in before D/C Order can be placed): Home, Self Care
--- NOTE | 2025-01-29 10:57 | PCM.POST.ANE ---
Anesthesia: Postop Eval I Current Vital Signs Temperature: 97 F Pulse Rate: 56 Blood Pressure: 99/55 Respiratory Rate: 16 Pulse Ox: 97 Assessment Airway patent: Yes Spontaneous unlabored respirations: Yes nausea: No Vomiting: No Anesthesia Complication: No Fluid Hydration Crystalloid volume administer (ml): 1,000 Total IV fluid infused: 1,000 Progress Note Anesthesia document: Postop Eval 1 completed: Yes
--- NOTE | 2025-01-29 11:22 | POSTOPAN2_ITS ---
Anesthesia Postop Eval I Sum Postop Eval Completion status Anesthesia document: Postop Eval 1 completed: Yes Anesthesia Postop Eval I Summary Anesthesia Postop Eval I Summary: Anesthesia Postop Eval I: Assessment Summary Airway patent Yes 01/29/25 10:57 CUT OFF OPERATOR SCORER.TNES Spontaneous unlabored Yes 01/29/25 10:57 CUT OFF OPERATOR SCORER.TNES respirations Mental status nausea No 01/29/25 10:57 CUT OFF OPERATOR SCORER.TNES Vomiting No 01/29/25 10:57 CUT OFF OPERATOR SCORER.TNES Anesthesia Postop Eval I: Fluid Summary Crystalloid volume administer 1,000 01/29/25 10:57 CUT OFF OPERATOR SCORER.TNES (ml) Colloids volume administered ( ml) Blood Product volume administered (ml) Total IV fluid infused 1,000 01/29/25 10:57 CUT OFF OPERATOR SCORER.TNES Anesthesia Postop Eval I: Summary Notes Anesthesia Complication No 01/29/25 10:57 CUT OFF OPERATOR SCORER.TNES Anesthesia Complication Comment: Post-operative progress note Anesthesia: Postop Eval II Evaluation Mental status: Awake Pain Level: 0 nausea: No Vomiting: No
--- NOTE | 2025-01-29 11:22 | PCM.POSTANE2 ---
Anesthesia Postop Eval I Sum Postop Eval Completion status Anesthesia document: Postop Eval 1 completed: Yes Anesthesia Postop Eval I Summary Anesthesia Postop Eval I Summary: Anesthesia Postop Eval I: Assessment Summary Airway patent Yes 01/29/25 10:57 [email or web address] Spontaneous unlabored Yes 01/29/25 10:57 [email or web address] respirations Mental status nausea No 01/29/25 10:57 [email or web address] Vomiting No 01/29/25 10:57 [email or web address] Anesthesia Postop Eval I: Fluid Summary Crystalloid volume administer 1,000 01/29/25 10:57 [email or web address] (ml) Colloids volume administered ( ml) Blood Product volume administered (ml) Total IV fluid infused 1,000 01/29/25 10:57 [email or web address] Anesthesia Postop Eval I: Summary Notes Anesthesia Complication No 01/29/25 10:57 [email or web address] Anesthesia Complication Comment: Post-operative progress note Anesthesia: Postop Eval II Evaluation Mental status: Awake Pain Level: 0 nausea: No Vomiting: No
== END 2025-01-29 12:37 | disposition home or self-care (01) ==
LOC: SDC 08:30 → AC 08:30
PROVIDERS: PCP Internal Medicine; Referring Provider Obstetrics & Gynecology; Visit Provider Obstetrics & Gynecology
PROC: 0UDB8ZZ Extraction of Endometrium, Via Natural or Artificial Opening Endoscopic (ICD-10-PCS; CPT 58558; principal; 2025-01-29 09:55)
DX: N72 Inflammatory disease of cervix uteri (principal); N95.0 Postmenopausal bleeding; N83.201 Unspecified ovarian cyst, right side; N81.2 Incomplete uterovaginal prolapse; Q51.810 Arcuate uterus; Z87.891 Personal history of nicotine dependence; I10 Essential (primary) hypertension; N39.3 Stress incontinence (female) (male)
CPT/HCPCS: 58558; 00952; 36415; 80053; 82378; 85027; 86304; 86850; 86900; 86901; 88305; 88312; 93005; J2405